=== PATIENT | female | born 1975 | race Two or more races ===

== ENCOUNTER 2019-07-16 18:13 | Emergency (ER) | payer SELFPAY ==
[~2019-07-16] VITALS: Ht 165.1 cm; Wt 81.6 kg
[2019-07-16 18:15] VITALS: BP 171/102
== END 2019-07-16 23:46 | disposition home or self-care (01) ==
LOC: EDBD 18:13 → ER 18:23
DX: M62.838 Other muscle spasm (principal); V43.52XA Car driver injured in collision with other type car in traffic accident, initial encounter; Y93.89 Activity, other specified; Y99.8 Other external cause status; Y92.410 Unspecified street and highway as the place of occurrence of the external cause
CPT/HCPCS: 70450; 72125